=== PATIENT | female | born 1955 | race Caucasian/White ===

== ENCOUNTER 2023-08-09 10:42 | Day surgery (SDC) | payer MEDICARE ==
[~2023-08-09] VITALS: Ht 157.5 cm; Wt 79.1 kg
[~2023-08-09 10:42] MED LIST: ATOR1TAB19 PO; BUSP5TA PO; CYCLOPENTOLATE 1% OPHTH SOLN 2ML BTL OS SCH; LISI10TA22 PO; OFLOXACIN 0.3 % (OCUFLOX) OPTH SOL 5ML OS SCH; PHENYLEPHRINE 2.5% OPHTH SOL 2ML OS SCH; PROPARACAINE 0.5% OPHTH SOL 15ML OS ONE; SERT25TA21 PO; TROPICAMIDE 1% OPHTH SOLN 15ML OS SCH
[2023-08-09] MEDS: CYCLOPENTOLATE 1% OPHTH SOLN 2ML BTL OD SCH (11:14)
[2023-08-09] MEDS: TROPICAMIDE 1% OPHTH SOLN 15ML OD SCH (11:14)
[2023-08-09] MEDS: PHENYLEPHRINE 2.5% OPHTH SOL 2ML OD SCH (11:14)
[2023-08-09] MEDS: PROPARACAINE 0.5% OPHTH SOL 15ML OD ONE (11:14)
[2023-08-09] MEDS: OFLOXACIN 0.3 % (OCUFLOX) OPTH SOL 5ML OD SCH (11:14)
[2023-08-09] MEDS ORDERED: MIDAZOLAM INJ 2MG/2ML VIAL As Ordered ONE (11:50)
[2023-08-09] MEDS ORDERED: fentaNYL 100 MCG/2 ML INJECTION As Ordered ONE (11:50)
[2023-08-09] MEDS: LIDOCAINE 1% SDV 5ML VIAL As Ordered ONE (11:51)
[2023-08-09] MEDS: CEFUROXIME 1MG/0.1ML INTRACAMERAL INJ As Ordered ONE (11:54)
[2023-08-09] MEDS: BSS IRR 500ML/OMIDRIA 4ML IRR BAG (OR ONLY) As Ordered ONE (11:54)
[2023-08-09 12:05] VITALS: BP 129/65; TEMP 98.4; O2SAT 95
[2023-09-07] MEDS ORDERED: D3 S1CAP PO (11:09)
[2023-09-07] MEDS ORDERED: VITACAP8 PO (11:09)
[2023-09-07] MEDS ORDERED: IBUP-1022 PO (11:09)
== END 2023-08-09 12:52 | disposition home or self-care (01) ==
LOC: M SDC 10:42
PROVIDERS: ATTEND Ophthalmology
DX: H25.12 Age-related nuclear cataract, left eye (principal); I10 Essential (primary) hypertension; E78.00 Pure hypercholesterolemia, unspecified; Z79.899 Other long term (current) drug therapy; Z87.891 Personal history of nicotine dependence
CPT/HCPCS: 66984; J0697; J1097; J2250; J3010; V2632

== ENCOUNTER 2023-09-13 11:53 | Day surgery (SDC) | payer MEDICAID, MEDICARE ==
[~2023-09-13] VITALS: Ht 157.5 cm; Wt 80.0 kg
[~2023-09-13 11:53] MED LIST changes: +BSS IRR 500ML/OMIDRIA 4ML IRR BAG (OR ONLY) As Ordered ONE; +CEFUROXIME 1MG/0.1ML INTRACAMERAL INJ As Ordered ONE; -CYCLOPENTOLATE 1% OPHTH SOLN 2ML BTL OS SCH; +D3 S1CAP PO; +IBUP-1022 PO; +LIDOCAINE 1% SDV 5ML VIAL As Ordered ONE; +MIDAZOLAM INJ 2MG/2ML VIAL As Ordered ONE; -OFLOXACIN 0.3 % (OCUFLOX) OPTH SOL 5ML OS SCH; -PHENYLEPHRINE 2.5% OPHTH SOL 2ML OS SCH; -PROPARACAINE 0.5% OPHTH SOL 15ML OS ONE; -TROPICAMIDE 1% OPHTH SOLN 15ML OS SCH; +VITACAP8 PO; +fentaNYL 100 MCG/2 ML INJECTION As Ordered ONE
[2023-09-13] MEDS: ATROPINE SULFATE 1% OPHTH SOLN 2ML BTL OD SCH (12:30)
[2023-09-13] MEDS: PHENYLEPHRINE 2.5% OPHTH SOL 2ML OD SCH (12:30)
[2023-09-13] MEDS: OFLOXACIN 0.3 % (OCUFLOX) OPTH SOL 5ML OD SCH (12:30)
[2023-09-13] MEDS: PROPARACAINE 0.5% OPHTH SOL 15ML OD ONE (12:31)
[2023-09-13] MEDS: TROPICAMIDE 1% OPHTH SOLN 15ML OD SCH (12:31)
[2023-09-13 13:50] VITALS: BP 111/58; TEMP 97.4; O2SAT 96
== END 2023-09-13 14:10 | disposition home or self-care (01) ==
LOC: M SDC 11:53
PROVIDERS: ATTEND Ophthalmology
DX: H25.11 Age-related nuclear cataract, right eye (principal); I10 Essential (primary) hypertension; E78.5 Hyperlipidemia, unspecified; K58.8 Other irritable bowel syndrome; F41.9 Anxiety disorder, unspecified; F32.A Depression, unspecified; Z79.899 Other long term (current) drug therapy
CPT/HCPCS: 66984; J0697; J1097; J2250; J3010; V2632